=== PATIENT | female | born 2000 | race Two or more races ===

== ENCOUNTER 2023-09-07 11:00 | Emergency (ER) | payer MEDICAID, OTHER ==
[~2023-09-07] VITALS: Ht 152.4 cm; Wt 53.2 kg
[2023-09-07 11:55] LABS: Urine Bacteria FEW /hpf (None Seen); Urine Blood Negative /uL (Negative); Urine Clarity HAZY (Clear); Urine Color Yellow (Yellow); Urine Protein, UAD Negative (Negative); Urine Urobilinogen Normal (Negative); Urine WBC 5 /hpf (0 - 5)
[2023-09-07] MEDS ORDERED: HYDROmorphone HCL 2 MG/ML VL/or syr IM ONE (12:30)
[2023-09-07] MEDS ORDERED: ONDANSETRON ODT 4 MG TAB PO ONE (12:30)
[2023-09-07] MEDS ORDERED: ZOFR4T PO (13:56)
[2023-09-07 14:05] VITALS: BP 112/71; PULSE 100; RESP 16; TEMP 98.5; O2SAT 100
== END 2023-09-07 14:04 | disposition home or self-care (01) ==
LOC: ER 11:00
DX: R51.9 Headache, unspecified (principal); R11.0 Nausea; Z32.02 Encounter for pregnancy test, result negative
CPT/HCPCS: 70450; 81001; 81025; 96372; 99285; J1170; Q0162